=== PATIENT | male | born 1975 | race Caucasian/White ===

== ENCOUNTER 2020-09-06 09:12 | Emergency (ER) | payer BC, SELFPAY ==
--- NOTE | 2020-09-06 09:23 | XR_ITS ---
WS: [id number] Left foot, 3 views, 09/06/2020 Clinical Data: pain Comparison: None. Findings: No fractures or dislocations are seen. No bone destruction or erosion is noted. There is a bunion at the head of the left first metatarsal with narrowing of the left first MTP joint.There is minimal sof t tissue deformity adjacent to the left fifth metatarsal. No radiopaque foreign body is seen. XR/XR foot LT min 3V* [id number] Impression: 1. Negative for radiopaque foreign body. 2. Osteoarthritis and bunion of the left first MTP joint.
[2020-09-06 09:59] VITALS: BP 145/91; PULSE 64; RESP 18; TEMP 36.7; O2SAT 95; BMI 32.1
--- NOTE | 2020-09-06 10:22 | ED_ITS ---
HPI - Extremity Problem General: Chief complaint: Extremity Injury, Lower Stated complaint: L foot pain Time Seen by Provider: 09/06/20 10:05 History of Present Illness: HPI Narrative: Patient is a 45-year-old male comes to the ED with left foot injury. Patient says he stepped on broken piece of glass yesterday. It caused a small laceration on the left side of his foot. He remove the glass but wanted come to the ED to check and make sure there is no other glass embedded in skin. Associated symptoms: Deny chest pain, fever(s) or rash Review of Systems Const: Denies: fever(s), chills or fatigue Eyes: Denies: change in vision or eye discomfort ENMT: Denies: throat pain, odynophagia, nasal discharge or nasal congestion Card: Denies: chest pain, palpitations, edema, swelling of feet/ankles, dyspnea on exertion or orthopnea Resp: Denies: dyspnea, productive cough or non-productive cough GI: Denies: abdominal pain, nausea, vomiting, diarrhea, constipation or hematochezia : Denies: flank pain, difficulty urinating, dysuria or hematuria Musc: Denies: neck pain, back pain or extremity swelling Skin/Breast: Reports: new lesions (Laceration to left foot.); Denies: rash Neuro: Denies: headache(s), numbness in extremities or weakness in extremities PFS ED PFSH: Social History Smoking and tobacco status: never smoked Physical Exam 2 Const: COMMON NORMALS: no acute distress, patient oriented x3 and alert GENERAL APPEARANCE: cooperative and comfortable HENMT: COMMON NORMALS: normocephalic HEAD & SCALP: normocephalic MOUTH: Normal oral and palatal mucosa present THROAT: posterior oropharynx normal and uvula midline Neck/C-Spine: COMMON NORMALS: supple GENERAL: Yes normal visual inspection Resp: COMMON NORMALS: normal respiratory effort, No retractions, No use of accessory muscles and clear to auscultation bilaterally AUSCULTATION: clear to auscultation bilaterally Cardio: COMMON NORMALS: regular rate, regular rhythm, S1 normal heart sound present, S2 normal heart sound present, No gallops present (Cardio), No clicks present (Cardio), No murmurs present (Cardio) and Peripheral pulses 2+ throughout RATE: regular rate RHYTHM: regular rhythm HEART SOUNDS: S1 normal heart sound present and S2 normal heart sound present PERIPHERAL PULSES: Peripheral pulses 2+ throughout GI: COMMON NORMALS: Normal to inspection, nondistended, normoactive bowel sounds present, Soft to palpation, non-tender and no masses PALPATION: Yes Soft to palpation : COMMON NORMALS: Yes no CVA tenderness BLADDER/KIDNEY EXAM: Yes no CVA tenderness Back/Pelvis: COMMON NORMALS: no CVA tenderness Extremity: NARRATIVE EXTREMITY EXAM: Patient has a small superficial laceration to lateral aspect left foot. No signs of any infection noticed. GENERAL: Yes normal exam except as noted Neuro: COMMON NORMALS: patient oriented x3 and moves all extremities SENSORIUM/ORIENTATION: Yes alert Skin: GENERAL SKIN EXAM: dry skin Course Vital Signs: Vital signs: Vital Signs Temperature 98.1 F 09/06/20 09:59 Pulse Rate 64 09/06/20 09:59 Respiratory Rate 18 09/06/20 09:59 Blood Pressure 145/91 09/06/20 09:59 Pulse Oximetry 95 09/06/20 09:59 MDM - Extremity (Nontraumatic) MDM Narrative: Medical decision making narrative: Patient is a 45-year-old male comes the ED with a laceration to left foot. Exam shows superficial laceration to left foot. Laceration is old and does not need any sutures. No signs of infection noted on exam. X-ray of left foot showed no foreign bodies or fractures. Patient diagnosed with laceration of foot discharged home on Bactrim. Patient was given updated tetanus while here in the ED. Follow-up with PCP in 7 to 10 days reevaluation. Return to ED precautions given. Patient understood agree with plan. Imaging Data^: Xray Ortho: Attestation: I personally reviewed and interpreted this imaging study as follows: Radiologist's impression: [address] [address] XRay Report Signed Patient: William Bain Unit #: [id number] : 1975 Age/Sex: 45 / M ADM Date: 09/06/20 Loc: ER Room/Bed: Attending Dr: Ordering Provider/Ordering MD: Pradip Sinclair DO Date of Service: 09/06/20 Procedure(s): XR foot LT min 3V* [id number] Accession Number(s): [id number] Report Number: [id number] WS: [id number] Left foot, 3 views, 09/06/2020 Clinical Data: pain Comparison: None. Findings: No fractures or dislocations are seen. No bone destruction or erosion is noted. There is a bunion at the head of the left first metatarsal with narrowing of the left first MTP joint.There is minimal soft tissue deformity adjacent to the left fifth metatarsal. No radiopaque foreign body is seen. XR/XR foot LT min 3V* [id number] Impression: 1. Negative for radiopaque foreign body. 2. Osteoarthritis and bunion of the left first MTP joint. Dictated By: Betty Bunn MD Signed By: Betty Bunn MD Signed Date/Time: 09/06/20 1008 DD/ 1005 Discharge Plan Discharge Patient Disposition: Home Clinical Impression: Laceration of foot Qualifiers: Encounter type: initial encounter Laterality: left Qualified Code(s): S91.312A - Laceration without foreign body, left foot, initial encounter Condition: Stable Prescriptions: New Bactrim DS 800-160 mg tablet 1 tab PO BID 4 Days Qty: 8 RF: 0 No Action losartan 25 mg tablet 25 mg PO DAILY RF: 0 amoxicillin-pot clavulanate [Augmentin] 875-125 mg tablet 1 tab PO BID 10 Days Qty: 20 RF: 0 Discharge Orders: Discharge ED (Routine); Ordered 09/06/20 Ordered By: Artie Cortes Discharge Diet: Regular Discharge Activity: Resume usual activity Activity Restrictions/Additional Instructions: Follow-up with medical provider as directed in 7 to 10 days reevaluation. Clean daily and apply triple antibiotic ointment and Bandage to keep it covered. Take medications as prescribed. Return to the ER or your medical provider if condition worsens. Please read and understand discharge instructions. Thank you for choosing [facility] for your healthcare needs today. Please realize this is an emergency room and that we are providing you with a medical screening exam and this may not be complete and all inclusive of all the testing and or work up that you may need to determine your ailment or severity of your illness. It is very important that you follow up as instructed or that you return to the Emergency Department should you have concerns or if your condition changes or worsens in any way. Coding Level of Care Code ED Repossessor for Pati Garcia Exam Comprehensive
[2020-09-06] MEDS: tetanus-dipt-pertussis 0.5 mL SDV IM (11:41)
== END 2020-09-06 11:44 | disposition home or self-care (01) ==
PROVIDERS: Emergency Provider Physician Assistant
DX: S91.312A Laceration without foreign body, left foot, initial encounter (principal); W25.XXXA Contact with sharp glass, initial encounter
CPT/HCPCS: 73630; 90471; 90715; 99282